=== PATIENT | male | born 1950 | race Caucasian/White ===

== ENCOUNTER 2025-07-11 16:23 | Emergency (ER) | payer BC ==
[~2025-07-11] VITALS: Ht 172.7 cm; Wt 70.5 kg
[2025-07-11 16:45] VITALS: TEMP 98.2
--- NOTE | 2025-07-11 17:19 | Physician Documentation ---
History of Present Illness ~ Chief Complaint: Finger pain Stated Complaint: FINGER PAIN Time Seen by MD: 17:03 OK to notify your PCP?: Yes Source: patient, family HPI Patient states he was putting up some insulation today and accidentally put a staple through the dorsum of the DIP joint of his right long finger with a staple gun. Patient states he is now unable to fully extend the right long finger at the level of the DIP joint. Medication Reconciliation Allergies: Coded Allergies: No Known Allergies (Unverified , 07/11/25) Review of Systems Constitutional: Denies: chills, fever, weakness Eyes: Denies: pain, blurred vision ENT: Denies: ear pain, nose pain, throat pain, mouth pain Respiratory: Denies: cough, shortness of breath Cardiovascular: Denies: chest pain, palpitations Gastrointestinal: Denies: abdominal pain, nausea, vomiting Genitourinary: Denies: burning, dysuria Male Genitalia: Denies: penile discharge, testicular pain Neurological: Denies: headache, dizziness Musculoskeletal: Denies: pain, swelling Integumentary: Denies: rash, lesions Allergic/Immunologic: Denies: hives, itching Hematologic/Lymphatic: Denies: no symptoms reported Psychiatric: Denies: depression, anxiety Physical Exam Vital Signs: Temperature: 98.2, Source: Temporal, Heart Rate: 59, Respiratory Rate: 18, BP: 127/94, Pulse Oximetry: 96, Weight: 70.450 Oxygen Flow Rate: 0 Physical Exam General: Awake and Alert, no acute distress. HEENT: Conjunctiva pink, Sclera clear, Mucus Membranes moist. Neck: Supple without masses and tenderness. Resp: Unlabored. Lungs clear to auscultation bilaterally. Musculoskeletal: Patient on exam does have mallet finger deformity of right long finger lacking full extension of the DIP joint of the right long finger. Patient is neurovascularly intact distally. Motor function intact distally. Patient has minimal tenderness to palpation of the dorsum of the right long finger DIP joint. Extremities: No cyanosis,clubbing or edema. Skin: Warm and Dry. Progress Results/Orders Results/Orders Orders - ROMINA VALENCIA PAC Finger(S) (07/11/25 17:21) Completed Orders - ROMINA VALENCIA PAC Finger(S) (07/11/25 17:21) Vital Signs 07/11/25 16:45 Temp 98.2 Pulse 59 Resp 18 B/P (MAP) 127/94 Pulse Ox 96 O2 Flow Rate 0 EKG/XRAY/CT/US/VASC/MRI Bone/Soft Tissue X-Ray (Ext.) : Additional Comment X-ray of right long finger interpreted by myself today shows no sign of acute fracture, no dislocation, bones in anatomic alignment. DIAGNOSTIC RADIOLOGY Patient: MEL MARC Medical Record: [id number] [facility] : 1950, Age: 74 Sex: Male Location: ER Patient Status: [facility] ER Service Date/Time: 07/11/251720 Ordering Physician: ROMINA VALENCIA PAC Exam: FINGER(S) CLINICAL INDICATION: finger pain right long finger TECHNIQUE: Right DI FINGER(S) Comparison: None FINDINGS/IMPRESSION: : There is no evidence of acute fracture or dislocation. Soft tissues are unremarkable. Electronically Signed by:PASTOR PUGH MD Date & Time: 07/11/251741 Dictated by: PASTOR PUGH MD Dictation date and time: 07/11/251741 Primary Care Provider: NO PRIMARY CARE PROVIDER cc: ROMINA VALENCIA PAC ~ Medical Decision Making Additional information obtaine: N/A Findings Patient states he was putting up some insulation today and accidentally put a staple through the dorsum of the DIP joint of his right long finger with a staple gun. Patient states he is now unable to fully extend the right long finger at the level of the DIP joint. Patient did have x-ray of the right long finger that showed no sign of acute fracture. Patient likely has mallet finger deformity from rupture or laceration of the extensor tendon of the right long finger at the level of the D IP joint. Patient was given a Stax splint with instructions to leave it in place for four weeks. I highly advised patient follow up with orthopedic hand specialist as soon as possible. Return to ED with any worsening, concerning or changing symptoms. General Diff Dx:Considerations: Unlikely: Abrasion, Contusion, Fracture, Hematoma, Laceration, Malunion, Neurovascular injury, Open fracture, Sprain, Ulcer, Other Shoulder Diff Dx:Consideration: Unlikely: AC separation, Adhesive capsulitis, Arthritis, Bicipital tendonitis, Calcific tendonitis, Cervical disc disease, Contusion, Dislocation, Fracture-humerus, Fracture-scapula, Fracture-clavicle, GB disease, Hematoma, Impingement syndrome, Myocardial infarction, Neurovascular injury, Open fracture-humerus, Open fracture-scapula, Open fracture-clavicle, Rotator cuff injury, SC dislocatoin, Sprain, Subacromial bursitis, Other Elbow Diff Dx:Considerations: Unlikely: Abrasion, Arthritis, Contustion, DJD, Fracture-humerus, Fracture-radial head, Fracture-radius, Fracture-ulna, Gout, Hematoma, Laceration, Neurovascular injury, Olecranon bursitis, Open fracture, Osteomyelitis, Radial head subluxation, Rheumatoid arthritis, Septic, Sprain, Ulcer, Other Wrist Diff Dx:Considerations: Unlikely: Abrasion, Arthritis, DJD, Gout, Rheumatoid, Septic, Carpal tunnel snydrome, Contusion, Dislocation, Fracture- carpal, Fracture-radius, Fracture-ulna, Ganglion, Laceration, Neurovascular injury, Open fracture, Strain, Other Hand Diff Dx:Considerations: Unlikely: Abrasion, Arthritis, Contusion, DJD, Felon, Fracture-carpal, Fracture-metacarpal, Fracture-phalynx, Fracture-radius, Fracture-ulna, Gout, Hematoma, Herpetic ford, Laceration, Neurovascular injury, Open fracture, Paronychia, Rheumatoid arthritis, Septic, Sprain, Subungual hematoma, Tenosynovitis, Volar plate injury, Cellulitis, Malunion, Other Finger Diff Dx:Considerations: Include: Cellulitis, Contusion, Dislocation, Fracture; Unlikely: Abrasion, Hematoma, Laceration, Neurovascular injury, Subungual hematoma, Other Departure Disposition: 01 HOME / SELF CARE / HOMELESS Impression: Primary Impression: Mallet deformity of right middle finger Condition: Stable Discharge Instructions: Mallet Finger Additional Instructions: Patient did have x-ray of the right long finger that showed no sign of acute fracture. Patient likely has mallet finger deformity from rupture or laceration of the extensor tendon of the right long finger at the level of the D IP joint. Patient was given a Stax splint with instructions to leave it in place for four weeks. I highly advised patient follow up with orthopedic hand specialist as soon as possible. Return to ED with any worsening, concerning or changing symptoms. Referrals: NO PRIMARY CARE PROVIDER (PCP) Signature Scribe Signature: No scribe Attestation: No scribe ROMINA VALENCIA PAC Jul 11, 2025 17:19
--- NOTE | 2025-07-11 17:44 | RADIOLOGY REPORT ---
CLINICAL INDICATION: finger pain right long finger TECHNIQUE: Right DI FINGER(S) Comparison: None FINDINGS/IMPRESSION: : There is no evidence of acute fracture or dislocation. Soft tissues are unremarkable.
[2025-07-11 18:06] VITALS: BP 130/90; PULSE 60; RESP 16; O2SAT 98
== END 2025-07-11 18:13 | disposition home or self-care (01) ==
LOC: ER 16:25
DX: M20.011 Mallet finger of right finger(s) (principal)
CPT/HCPCS: 73140; 99283; A6449